=== PATIENT | female | born 1965 | race Caucasian/White ===

== ENCOUNTER 2021-01-07 07:12 | Emergency (ER) | payer OTHER ==
[~2021-01-07] VITALS: Ht 160 cm; Wt 53.6 kg
== END 2021-01-07 08:08 | disposition home or self-care (01) ==
LOC: EDBD 07:12 → FSED 07:49
DX: F41.0 Panic disorder [episodic paroxysmal anxiety] (principal)
CPT/HCPCS: 93005; 99283

== ENCOUNTER 2021-04-21 07:08 | Emergency (ER) | payer OTHER ==
[~2021-04-21] VITALS: Ht 160 cm; Wt 52.3 kg
[2021-04-21] MEDS ORDERED: CYCLOBENZAPRINE10 MG PO (08:44)
== END 2021-04-21 09:04 | disposition home or self-care (01) ==
LOC: FSED 08:12
DX: M54.2 Cervicalgia (principal); V43.52XA Car driver injured in collision with other type car in traffic accident, initial encounter; Y92.488 Other paved roadways as the place of occurrence of the external cause; I10 Essential (primary) hypertension; E78.5 Hyperlipidemia, unspecified; F17.210 Nicotine dependence, cigarettes, uncomplicated
CPT/HCPCS: 70450; 99283